=== PATIENT | female | born 1960 | race Two or more races ===

== ENCOUNTER 2019-04-05 11:23 | Outpatient (CLI) | payer OTHER ==
[~2019-04-05 11:23] MED LIST: CLONAZEPAM0.5 MG PO; NADOLOL20 MG; TRAMADOL HCL-AP1 TAB PO
== END 2019-04-05 11:25 | disposition home or self-care (01) ==
LOC: RAD 11:23
DX: R07.89 Other chest pain (principal)

== ENCOUNTER 2019-06-20 12:02 | Outpatient (CLI) | payer OTHER | END 2019-06-20 12:04 | disposition home or self-care (01) | LOC: RAD 12:02 | DX: M25.561 Pain in right knee (principal); M25.562 Pain in left knee ==

== ENCOUNTER 2020-06-14 20:04 | Emergency (ER) | payer OTHER ==
[~2020-06-14] VITALS: Ht 152.4 cm; Wt 74.8 kg
== END 2020-06-15 00:52 | disposition home or self-care (01) ==
LOC: ER 20:04
DX: K80.20 Calculus of gallbladder without cholecystitis without obstruction (principal); K29.70 Gastritis, unspecified, without bleeding; R10.31 Right lower quadrant pain; Z03.818 Encounter for observation for suspected exposure to other biological agents ruled out

== ENCOUNTER 2020-06-17 14:58 | Inpatient (IN) | payer OTHER ==
[~2020-06-17] VITALS: Ht 2.5 cm; Wt 72.6 kg
[2020-06-17] MEDS ORDERED: INDERAL LA160 MG (15:25)
[2020-06-17] MEDS ORDERED: SYNTHROID112 MCG (15:25)
[2020-06-18] MEDS ORDERED: HYOSCYAMINE0.125 MG (15:38)
== END 2020-06-21 12:51 | disposition home or self-care (01) | DRG 419 ==
LOC: ER 14:58 → SEC-K 06-18 15:21 → SURG 06-18 15:21
PROVIDERS: ADMIT Specialist; ATTEND Specialist
PROC: 0FT44ZZ Resection of Gallbladder, Percutaneous Endoscopic Approach (ICD-10-PCS; principal; 2020-06-20 07:00)
DX: K80.00 Calculus of gallbladder with acute cholecystitis without obstruction (principal); I10 Essential (primary) hypertension; E03.9 Hypothyroidism, unspecified